=== PATIENT | female | born 1995 | race Caucasian/White ===

== ENCOUNTER → 2019-01-22 14:55 | Observation (INO) ==
[2019-01-22 13:40] LABS: Bilirubin,Urine Negative (Negative); Blood,Urine Negative (Negative); Clarity,Urine Cloudy (Clear); Color,Urine Yellow (Yellow); Glucose,Urine (UA) Normal (Normal); Ketones,Urine Negative (Negative); Leukocyte Esterase,Urine Large (Negative); Nitrite,Urine Negative (Negative); Protein,Urine Trace mg/dL (Neg-Trace); Specific Gravity,Urine 1.022 (1.010-1.025); Urobilinogen,Urine Normal (Normal)
[2019-01-22 13:42] LABS: Bacteria,Urine Moderate per hpf (None-Few); Hyaline Casts,Urine Few per lpf (None-Few); RBC,Urine 0-3 per hpf (0-3); Squamous Epithelial Cell,Urine Many per lpf (None-Few); WBC,Urine 50-100 per hpf (0-3)
[2019-01-22 13:52] LABS: Amphetamine Screen,Urine Negative ng/mL (Cutoff=1000); Barbiturate Screen,Urine Negative ng/mL (Cutoff=200); Benzodiazepines Screen,Urine Negative ng/mL (Cutoff=200); Cannabinoid Screen,Urine Negative ng/mL (Cutoff = 50); Cocaine Screen,Urine Negative ng/mL (Cutoff= 300); Opiate Screen,Urine Negative ng/mL (Cutoff=300); Phencyclidine Screen,Urine Negative ng/mL (Cutoff=25)
--- NOTE | 2019-01-22 14:25 | Discharge Summary ---
Date of Encounter: 01/22/19 Time of Encounter: 14:32 - Discharge Diagnosis (1) 37 weeks gestation of Priority: Primary Status: Acute Comments: Admit to observation for labor evaluation (2) NST (non-stress test) reactive Priority: Secondary Status: Acute Comments: FHR 135 bpm, moderate variability, +15x15 accels, no decels. (3) Urinary tract infection affecting , antepartum Priority: Secondary Status: Acute Comments: RX sent for Keflex 1000 mg bid x 5 days. - Discharge Medications Prescriptions: New cephALEXin [Keflex] 1,000 mg PO BID 5 Days #20 capsule No Action Vitamin Tablet 1,000 mg PO DAILY Ondansetron ODT [Zofran ODT] 80 mg PO DAILY RX: Ferrous Sulfate 325 mg PO DAILY Celexa 1 mg PO DAILY Home Medications: Celexa 1 mg PO DAILY 01/22/19 [History] Ferrous Sulfate 325 mg PO DAILY 01/22/19 [History] Ondansetron ODT [Zofran ODT] 80 mg PO DAILY 01/22/19 [History] Vitamin Tablet 1,000 mg PO DAILY 01/22/19 [History] cephALEXin [Keflex] 1,000 mg PO BID 5 Days #20 capsule 01/22/19 [Rx] Allergies/Adverse Reactions: Allergy/AdvReac Type Severity Reaction Status Date / Time No Known Allergies Allergy Verified 01/22/19 13:08 Data Procedures and tests throughout hospitalization: Laboratory Tests 01/22/19 01/22/19 13:15 13:15 Urine Color Yellow Urine Clarity Cloudy A Urine pH 7.0 Ur Specific [place] 1.022 Urine Protein Trace Urine Glucose (UA) Normal Urine Ketones Negative Urine Blood Negative Urine Nitrite Negative Urine Bilirubin Negative Urine Urobilinogen Normal Ur Leukocyte Esterase Large H Urine Microscopic RBC 0-3 Urine Microscopic WBC 50-100 H Ur Squamous Epith Cells Many H Urine Bacteria Moderate H Hyaline Casts Few Ur Culture Indicated? NO. A Urine Opiates Screen Negative Ur Barbiturates Screen Negative Ur Phencyclidine Scrn Negative Ur Amphetamines Screen Negative U Benzodiazepines Scrn Negative Urine Cocaine Screen Negative U Marijuana (THC) Screen Negative Ur Drug Screen Interp See Below Labs on day of discharge: Labs from last 24 hours 01/22/19 01/22/19 13:15 13:15 Urine Color Yellow Urine Clarity Cloudy A Urine pH 7.0 Ur Specific [place] 1.022 Urine Protein Trace Urine Glucose (UA) Normal Urine Ketones Negative Urine Blood Negative Urine Nitrite Negative Urine Bilirubin Negative Urine Urobilinogen Normal Ur Leukocyte Esterase Large H Urine Microscopic RBC 0-3 Urine Microscopic WBC 50-100 H Ur Squamous Epith Cells Many H Urine Bacteria Moderate H Hyaline Casts Few Ur Culture Indicated? NO. A Urine Opiates Screen Negative Ur Barbiturates Screen Negative Ur Phencyclidine Scrn Negative Ur Amphetamines Screen Negative U Benzodiazepines Scrn Negative Urine Cocaine Screen Negative U Marijuana (THC) Screen Negative Ur Drug Screen Interp See Below Date of admission: 01/22/19 12:41 Primary care physician: Jannie Garza CNP Discharging clinician: Shira Mcdaniel Anticipated date of discharge: 01/22/19 - Patient Status Disposition: Home, Self-Care Condition: Good Functional capacity at discharge: independent ambulation Overall status at discharge: patient is progressing back to baseline - Discharge Instructions Follow Up With: Jannie Garza CNP [Primary Care Provider] - - Diet and Activity Activity: resume usual activities as tolerated Diet: regular diet 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 She reports contractions since 0630 this AM. She denies vaginal bleeding and fluid leakage and reports positive movement. She was 2 cm on arrival and remains unchanged after 2 hrs. Her UA appears as though she may have a UTI but is possibly contaminated. We will go ahead and treat for UTI and request culture although there are epithelial cells present. She is to return to office for routine care on Tuesday as scheduled. Time Attestation: Total time spent providing and/or coordinating discharge services: Time Spent: Less than 30 minutes Exam - Constitutional General appearance IM: A&O X 3, pleasant, no acute distress, answers questions appropriately - Respiratory Respiratory exam: Present: CTAB - Cardiovascular Cardiovascular exam IM: Present: RRR, +S1, +S2 - GI/Abdominal GI/Abdominal exam IM: normal bowel sounds - Rectal Rectal exam: deferred - External exam: normal external exam - Extremities Exam Extremities exam IM: Present: full ROM, normal capillary refill, normal inspection - Neurological Exam Neurological exam: alert, normal gait, oriented X3 - VTE Reasons for not Prescribing Prophylaxis: Treatment not Indicated - Low risk for VTE
== END | disposition home or self-care (01) ==
LOC: 1NENULAB
PROVIDERS: ADMIT Registered Nurse; ATTEND Registered Nurse

== ENCOUNTER 2019-01-25 22:30 | Inpatient (IN) ==
[2019-01-25 22:00] LABS: Amphetamine Screen,Urine Negative ng/mL (Cutoff=1000); Barbiturate Screen,Urine Negative ng/mL (Cutoff=200); Benzodiazepines Screen,Urine Negative ng/mL (Cutoff=200); Cannabinoid Screen,Urine Negative ng/mL (Cutoff = 50); Cocaine Screen,Urine Negative ng/mL (Cutoff= 300); Opiate Screen,Urine Negative ng/mL (Cutoff=300); Phencyclidine Screen,Urine Negative ng/mL (Cutoff=25)
[~2019-01-25 22:30] MED LIST: *HR* Nalbuphine 10 MG/ML AMPUL IVP PRN; Famotidine 20 MG/2 ML VIAL IVP PRN; Lidocaine 1% 20 ML MDV INFILT PRN; Metoclopramide 10 MG/2 ML VIAL IVP PRN; Naloxone 0.4 MG/ML INJ IVP PRN; Ondansetron 4 MG/2 ML VIAL IVP PRN; Ringers Solution, Lactated 1,000 ML IVC SCH; Ringers Solution, Lactated 1,000 ML ONE
[2019-01-25 22:46] LABS: Basophils # 0.1 K/mcL (0.0-0.2); Basophils % 0.4 %; Eosinophils % 0.2 %; Hematocrit 33.9 % (35.3-44.9); Hemoglobin 10.6 g/dL (11.5-15.4); Immature Granulocytes % 1.3 % (0-4); Lymphocytes # 2.1 K/mcL (0.6-4.6); Lymphocytes % 14.5 %; Mean Corpuscular HGB Conc 31.3 g/dL (31.6-35.5); Mean Corpuscular Hemoglobin 25.8 pg (28.0-33.3); Mean Corpuscular Volume 82.5 fL (83.0-100.0); Mean Platelet Volume 10.9 fL (9.4-12.4); Monocytes # 0.9 K/mcL (0.0-1.3); Monocytes % 6.3 %; Neutrophils # 11.2 K/mcL (1.6-8.9); Platelet Count 239 K/mcL (140-400); Red Blood Count 4.11 M/mcL (3.82-4.97); Red Cell Distribution Width 12.5 % (11.5-14.5); Segmented Neutrophils % 77.3 %
[2019-01-25] MEDS ORDERED: Lidocaine -MPF 1% 5 ML AMPUL ONE (22:55)
[2019-01-25] MEDS ORDERED: Epidural Premix (fent/bupiv) 110 ML EP ONE (22:57)
[2019-01-25] MEDS ORDERED: Epidural Premix (fent/bupiv) 110 ML EP SCH (23:00)
--- NOTE | 2019-01-25 23:27 | Anesthesia Evaluation PreOp ---
Date of Encounter: 01/25/19 Time of Encounter: 23:26 - Past History Planned Operation: MASOUD Cardiac History: Denies any Significant Hx Pulmonary History: Denies Any Significant HX CLINICAL RESEARCH ASSISTANT History: Denies Any Significant HX Other Medical History: Denies Any Significant HX Anesthesia History: No Prior Anesthetic Complications, Past Anesthesia : Yes ( 38.2) Alcohol Use: none Drug use: none Medications and Allergies Celexa 1 mg PO DAILY 01/22/19 [History] Ferrous Sulfate 325 mg PO DAILY 01/22/19 [History] Ondansetron ODT [Zofran ODT] 80 mg PO DAILY 01/22/19 [History] Vitamin Tablet 1,000 mg PO DAILY 01/22/19 [History] cephALEXin [Keflex] 1,000 mg PO BID 5 Days #20 capsule 01/22/19 [Rx] Allergy/AdvReac Type Severity Reaction Status Date / Time No Known Allergies Allergy Verified 01/25/19 22:38 - Meds/Allergy Pre-op Review Medications Reviewed: Yes Allergies Reviewed: Yes Beta Blockers on Current Med List: No Anesthesia Results - Labs 01/25/19 22:38 Anesthesia Exam O2 Sat Height 1.6 m Weight 65.862 kg NPO (# of Hours): 6 Pain Scale: 10 Pain Scale Used: Numeric (1 - 10) - HEENT Pupil (Motor): Pupils equal Mallampati: II Teeth: Normal Oral Opening: Greater than 3 - CLINICAL RESEARCH ASSISTANT LOC: Oriented CLINICAL RESEARCH ASSISTANT Motor: Normal RUE, Normal LUE, Normal RLE, Normal LLE, Normal Face CLINICAL RESEARCH ASSISTANT Sensory: Normal: RUE, LUE, RLE, LLE, Face - Cardiac Rhythm: Regular Murmur: None JVD: No Carotid Bruit: No - Pulmonary Breath Sounds: bilateral Clear Respiratory Effort: Symmetrical Anesthesia Assess/Plan ASA Score: 2 Level of consciousness: Cooperative, Oriented Anesthetic Plan: General, Epidural Autologous Blood: Yes Monitoring Plan: Standard Monitors
--- NOTE | 2019-01-25 23:29 | Anesthesia Procedures ---
Addendum entered and electronically signed by Clarence Chamberlain CRNA 01/26/19 06:37: Delivery Date: 01/26/19 Infant Delivery Time: 01:05 Original Note: Date of Encounter: 01/25/19 Time of Encounter: 23:27 Procedures: Anesthesia - Epidural/Spinal Patient ID/Chart reviewed: Yes Patient examined: Yes OB Eval: Gestational age: 38.2 OB Eval: : 1 OB Eval: Hx Para: 0 OB Eval: Dilated at (cm): 5 OB Eval: Contractions: Non-stressed pattern Consent Obtained: Yes Supplemental Oxygen: None/Room Air Site Prep: Aseptic Technique, Sterile prep and drape, Povidone-Iodine 1% Patient position: upright Local Anesthetic: Lidocaine 1% Amount of Local Anesthetic used: 3 Touhy Needle Gauge: 18 Touhy Needle Depth (cm): 5 Catheter Depth at Skin (cm): 19 Test Dose (1.5% Lido + Epi): Volume given (mls): 5 Test Dose Result: Negative Loading Dose: Other: 10mls of epi pharm bag premix solution Loading Dose Administered: Thru Catheter Infusion Med: 0.125% Bupivacaine w/ 2 mcg/ml Fentanyl Infusion Rate (mls/hr): 16 ([id number]) Catheter Secured in Place: Tegaderm, Tape Interspace Used: L3-L4 Loss of Resistance (RONAL): Yes Blood: No CSF: No Paresthesia: No Procedure: pt tolerated procedure well. no complications. vss. fhr stable.
--- NOTE | 2019-01-26 | OB/GYN History & Physical ---
Date of Encounter: 01/25/19 Time of Encounter: 23:53 Assessment and Plan (1) 38 weeks gestation of Current visit: Yes Status: Acute (2) Intrauterine Current visit: Yes Status: Acute (3) Intact amniotic membranes during in third trimester Current visit: Yes Status: Acute AROM-small amount of clear fluid (4) Type AB blood, Rh positive Current visit: Yes Status: Acute (5) NST (non-stress test) reactive Current visit: No Status: Acute (6) Active labor at term Current visit: Yes Status: Acute Admit to L&D for observation of labor Expectant management Labs-CBC and clot to hold Pain management plan is epidural-may have upon request GBS negative-no prophylaxis needed Intermittent auscultation ok Anticipate vaginal delivery Dr. Tran is the OB on-call and is available as needed History of Present Illness Chief complaint: contractions HPI: Ms. White is a 23 year old female at 38 weeks 2 days gestation with an estimated date of of 02/06/19 dated by early ultrasound. She presents with complaints of contractions that started around 1900 this evening. She reports they increased in strength and frequency as the night when on. She endorses good movement and denies leakage of fluid and vaginal bleeding. She has been seen by a doctor low has throughout . records are available electronically and a been reviewed. Her has been complicated by congenital hip dysplasia for which she had maternal medicine and anesthesiology consultations. records are available electronically and have been reviewed. Labs: AB+ GBS- Hep B- HIV- T. Palladium- GC/CL- Rubella immune Varicella immune Past Med Surg Social Fam HX - Past Medical History Medical history: no medical history - Past Surgical History Surgical History: no surgical history - Social History Smoking Status: Never smoker Alcohol use: none Drug use: none - Family History Mother Adopted: Yes (adopted as an infant) Family Member Ethnicity: Non- Living Status: Obstetrical History - Pregnancies : 1 Para: 0 Term: 0 : 0 Ab's: 0 Livin Medications and Allergies Celexa 1 mg PO DAILY 01/22/19 [History] Ferrous Sulfate 325 mg PO DAILY 01/22/19 [History] Ondansetron ODT [Zofran ODT] 80 mg PO DAILY 01/22/19 [History] Vitamin Tablet 1,000 mg PO DAILY 01/22/19 [History] cephALEXin [Keflex] 1,000 mg PO BID 5 Days #20 capsule 01/22/19 [Rx] Allergy/AdvReac Type Severity Reaction Status Date / Time No Known Allergies Allergy Verified 01/25/19 22:38 Review of System OB All systems PM: reviewed and no additional remarkable complaints except as stated Exam - Constitutional Constitutional: well developed, well nourished, no acute distress, average body habitus - HEENT HEENT: PERRL, Normocephaly, Mucus Membranes Moist - Neck Neck exam: full ROM - Lungs Respiratory exam: CTAB - Cardiovascular Cardiovascular exam: RRR, +S1, +S2 - Breasts Breast: bilateral: normal - Abdomen Abdomen: Present: bowel sounds normal, gravid, non tender - Extremities Extremities exam: full ROM, normal capillary refill, normal inspection, radial pulses palpable and symmetrical - Vulva Vulva: bilateral: normal - Vagina Vagina: Present: normal moisture - Cervix Cervix: Present: lesion Dilation: 8 Effacement: 100 Station: 0 - Uterus Uterus exam: Present: normal size, normal contour - Adnexa Adnexa: bilateral: normal - Anus/Rectum Anus/Rectum: Present: normal perianal skin Results Result Diagrams: 01/25/19 22:38 Abnormal lab results WBC 14.5 K/mcL (4.3-11.1) H 01/25/19 22:38 Hgb 10.6 g/dL (11.5-15.4) L 01/25/19 22:38 Hct 33.9 % (35.3-44.9) L 01/25/19 22:38 MCV 82.5 fL (83.0-100.0) L 01/25/19 22:38 MCH 25.8 pg (28.0-33.3) L 01/25/19 22:38 MCHC 31.3 g/dL (31.6-35.5) L 01/25/19 22:38 Neutrophils # 11.2 K/mcL (1.6-8.9) H 01/25/19 22:38 All other labs normal. - VTE Reasons for not Prescribing Prophylaxis: Treatment not Indicated - Low risk for VTE
[2019-01-26] MEDS ORDERED: Oxytocin 20 units/ LR 1000 mL 20 UNIT/1,000 ML BAG IVC ONE (00:38)
--- NOTE | 2019-01-26 01:40 | OB/GYN Procedure Note ---
Delivery - Delivery Date: 01/26/19 Provider: Krystle Camarillo Intrapartum events: meconium Delivery induction: none Delivery augmentation: rupture of membranes Delivery monitor: external FHT, external uterine Anesthesia: epidural Quantitated Blood Loss: 150 - Infant (s) A Delivery Date: 01/26/19 Delivery Time: 01:05 Presentation: vertex Position: ARYA Route of delivery: Gender: Female Viability: Viable Pounds: 6 Ounces: 7 Weight Gram: 2.915 kg at 1 minute: 8 at 5 mins: 9 Shoulder Dystocia: not encountered Specimens collected: cord blood Placenta: spontaneous Cord: 3 umbilical vessels - Repair Episiotomy: none Laceration Description: Labial (left - repaired) - Complications Delivery complications: none Delivery comments: This is a 23 year old G 1 now P 1001 who was admitted for active labor. She progressed with AROM augmentation to the second stage of labor. She pushed for about 20 minutes. She delivered a viable, female , ARYA "Natalie Marium" over an intact perineum. A nuchal cord was not identified. A shoulder dystocia was not encountered. The was placed on the maternal abdomen and allowed to transition spontaneously. The cord was double clamped by electronic funds transfer coordinator after pulsations ceased and cut by FOB. scores were 8 at 1 minute and 9 at 5 minutes. The weighed 6 lbs. 7 oz. (2915 g). The placented delivered spon taneously, intact (Dee) with a 3-vessel cord. Inspection revealed a left labial laceration. The laceration was repaired with a 3-0 Monocryl suture under epidural anesthesia. The uterus was firm with no active bleeding. EBL was 150 mL. Placenta and umbilical artery blood gases were not sent. There were no complications during the procedure. Mom and baby are skin to skin following delivery. - Disposition Mom disposition: stable in LDR disposition: stable in LDR
[2019-01-26] MEDS ORDERED: Benzocaine/Menthol 56 GM AEROSOL SPRAY TP PRN (03:29)
[2019-01-26] MEDS ORDERED: Acetaminophen 325 MG TABLET PO PRN (03:29)
[2019-01-26] MEDS ORDERED: Oxytocin 20 units/ LR 1000 mL 20 UNIT/1,000 ML BAG IVC SCH (03:29)
[2019-01-26] MEDS: Prenatal Vit/FA 1 EACH TABLET PO SCH (08:50)
[2019-01-26] MEDS: cephALEXin 500 MG CAPSULE PO SCH ×2 (08:50→20:23)
[2019-01-26] MEDS: Ibuprofen 600 MG TABLET PO PRN ×2 (11:19→17:20)
[2019-01-27 08:30] LABS: Basophils # 0.1 K/mcL (0.0-0.2); Basophils % 0.6 %; Eosinophils # 0.1 K/mcL (0.0-0.6); Eosinophils % 0.5 %; Hematocrit 29.8 % (35.3-44.9); Hemoglobin 9.2 g/dL (11.5-15.4); Immature Granulocytes % 1.3 % (0-4); Lymphocytes # 2.9 K/mcL (0.6-4.6); Lymphocytes % 26.1 %; Mean Corpuscular HGB Conc 30.9 g/dL (31.6-35.5); Mean Corpuscular Hemoglobin 25.8 pg (28.0-33.3); Mean Corpuscular Volume 83.5 fL (83.0-100.0); Mean Platelet Volume 11.2 fL (9.4-12.4); Monocytes # 0.8 K/mcL (0.0-1.3); Monocytes % 6.8 %; Neutrophils # 7.2 K/mcL (1.6-8.9); Platelet Count 202 K/mcL (140-400); Red Blood Count 3.57 M/mcL (3.82-4.97); Red Cell Distribution Width 12.8 % (11.5-14.5); Segmented Neutrophils % 64.7 %
[2019-01-27 08:48] VITALS: BP 99/65
[2019-01-27] MEDS: cephALEXin 500 MG CAPSULE PO SCH (08:58)
[2019-01-27] MEDS: Prenatal Vit/FA 1 EACH TABLET PO SCH (08:58)
--- NOTE | 2019-01-27 12:43 | Discharge Summary ---
Date of Encounter: 01/27/19 Time of Encounter: 12:43 - Discharge Diagnosis (1) Status post vaginal delivery Priority: Primary Status: Acute Comments: Meeting milestones as expected. Vaginally bleeding improving. Pain controlled with prescribed medications. Voiding normally, passing gas, no BM yet. Tolerating diet Discharge today (2) anemia Priority: Secondary Status: Acute Comments: hgb 9.2 today from 10.6 Increased to BID iron supplementation for discharge - Discharge Medications Prescriptions: New Breast Pump [BREAST PUMP] 1 each .ROUTE AD #1 each Docusate [Colace] 100 mg PO BID #60 capsule Ibuprofen [Motrin] 600 mg PO Q6H PRN #60 tablet PRN Reason: Cramping Dibucaine [Nupercainal] 56.7 gm RC PRN PRN #1 oint...g. PRN Reason: Hemorrhoids cephALEXin [Keflex] 500 mg PO BID capsule Continued Vitamin Tablet 1,000 mg PO DAILY Celexa 1 mg PO DAILY Changed Ferrous Sulfate 325 mg PO BID #60 tablet Discontinued Ondansetron ODT [Zofran ODT] 80 mg PO DAILY Home Medications: Celexa 1 mg PO DAILY 01/22/19 [History] Vitamin Tablet 1,000 mg PO DAILY 01/22/19 [History] Breast Pump [BREAST PUMP] 1 each .ROUTE AD #1 each 01/27/19 [Rx] Dibucaine [Nupercainal] 56.7 gm RC PRN PRN #1 oint...g. 01/27/19 [Rx] Docusate [Colace] 100 mg PO BID #60 capsule 01/27/19 [Rx] Ferrous Sulfate 325 mg PO BID #60 tablet 01/27/19 [Rx] Ibuprofen [Motrin] 600 mg PO Q6H PRN #60 tablet 01/27/19 [Rx] cephALEXin [Keflex] 500 mg PO BID capsule 01/27/19 [Rx] Allergies/Adverse Reactions: Allergy/AdvReac Type Severity Reaction Status Date / Time No Known Allergies Allergy Verified 01/25/19 22:38 Data Procedures and tests throughout hospitalization: Laboratory Tests 01/25/19 01/25/19 01/27/19 21:37 22:38 04:34 WBC 14.5 H 11.1 RBC 4.11 3.57 L Hgb 10.6 L 9.2 L Hct 33.9 L 29.8 L MCV 82.5 L 83.5 MCH 25.8 L 25.8 L MCHC 31.3 L 30.9 L RDW 12.5 12.8 Plt Count 239 202 MPV 10.9 11.2 Immature Gran % 1.3 1.3 Seg Neutrophils % 77.3 64.7 Lymphocytes % 14.5 26.1 Monocytes % 6.3 6.8 Eosinophils % 0.2 0.5 Basophils % 0.4 0.6 Neutrophils # 11.2 H 7.2 Lymphocytes # 2.1 2.9 Monocytes # 0.9 0.8 Eosinophils # 0.0 0.1 Basophils # 0.1 0.1 Urine Opiates Screen Negative Ur Barbiturates Screen Negative Ur Phencyclidine Scrn Negative Ur Amphetamines Screen Negative U Benzodiazepines Scrn Negative Urine Cocaine Screen Negative U Marijuana (THC) Screen Negative Ur Drug Screen Interp See Below Labs on day of discharge: Labs from last 24 hours 01/27/19 04:34 WBC 11.1 RBC 3.57 L Hgb 9.2 L Hct 29.8 L MCV 83.5 MCH 25.8 L MCHC 30.9 L RDW 12.8 Plt Count 202 MPV 11.2 Immature Gran % 1.3 Seg Neutrophils % 64.7 Lymphocytes % 26.1 Monocytes % 6.8 Eosinophils % 0.5 Basophils % 0.6 Neutrophils # 7.2 Lymphocytes # 2.9 Monocytes # 0.8 Eosinophils # 0.1 Basophils # 0.1 Date of admission: 01/25/19 22:35 Primary care physician: Jannie Garza CNP Consults: 01/26/19 03:29 Consult to Racing Manager [CONS] Routine Comment: Vaginal delivery, consult needed Discharging clinician: Shira Mcdaniel Anticipated date of discharge: 01/27/19 - Patient Status Disposition: Home, Self-Care Condition: Good Functional capacity at discharge: independent ambulation Overall status at discharge: patient is progressing back to baseline - Discharge Instructions Follow Up With: Jannie Garza CNP [Primary Care Provider] - - Diet and Activity Activity: increase activity as tolerated Diet: advance to your usual diet 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 Time Attestation: Total time spent providing and/or coordinating discharge services: Exam - Constitutional Vitals: Temp Pulse Resp BP Pulse Ox 98.1 F 78 14 99/65 99 01/27/19 08:47 01/27/19 08:47 01/27/19 08:47 01/27/19 08:47 01/27/19 08:47 General appearance IM: A&O X 3, pleasant, no acute distress - Respiratory Respiratory exam: Present: CTAB - Cardiovascular Cardiovascular exam IM: Present: RRR, +S1, +S2 - GI/Abdominal GI/Abdominal exam IM: normal bowel sounds - Uterine Tone: Firm Uterus Position: 2 Fingers Below Umbilicus - Extremities Exam Extremities exam IM: Present: pedal edema (improved). Absent: calf tenderness, tenderness - Neurological Exam Neurological exam: no focal deficits - VTE Reasons for not Prescribing Prophylaxis: Treatment not Indicated - Low risk for VTE
== END 2019-01-27 14:20 | disposition home or self-care (01) | DRG 807 ==
LOC: 1NENULAB → 1NENUOBS 01-26 03:46
PROVIDERS: ADMIT Advanced Practice Midwife; ATTEND Advanced Practice Midwife